=== PATIENT | male | born 2000 | race Caucasian/White ===

== ENCOUNTER 2024-05-11 22:26 | Emergency (ER) | payer SELFPAY ==
[2024-05-11 22:28] VITALS: PULSE 78
== END 2024-05-11 23:48 | disposition left against medical advice (07) ==
LOC: ER 22:26
DX: M25.532 Pain in left wrist (principal); Z53.21 Procedure and treatment not carried out due to patient leaving prior to being seen by health care provider

== ENCOUNTER 2024-07-13 07:50 | Emergency (ER) | payer SELFPAY ==
[~2024-07-13] VITALS: Ht 170.2 cm; Wt 66.0 kg
[2024-07-13 07:52] VITALS: BP 119/81; PULSE 62; RESP 16; TEMP 99; O2SAT 100
[2024-07-13 08:06] VITALS: O2SAT 99
== END 2024-07-13 08:25 | disposition left against medical advice (07) ==
LOC: ER 07:50
DX: M25.522 Pain in left elbow (principal); F17.210 Nicotine dependence, cigarettes, uncomplicated; Z88.6 Allergy status to analgesic agent; V00.131A Fall from skateboard, initial encounter; Y93.51 Activity, roller skating (inline) and skateboarding; Y92.89 Other specified places as the place of occurrence of the external cause; Y99.8 Other external cause status
CPT/HCPCS: 99283

== ENCOUNTER 2024-07-13 08:44 | Emergency (ER) | payer OTHER, MEDICAID ==
[~2024-07-13] VITALS: Ht 175.3 cm; Wt 75.0 kg
[2024-07-13] MEDS: KETOROLAC 15MG/ML VIAL IV ONE (10:46)
[2024-07-13 11:11] VITALS: O2SAT 99
[2024-07-13] MEDS: KETAMINE HCL 50 MG/ML 10ML IV ONE (11:24)
[2024-07-13] MEDS: SODIUM CHLORIDE 0.9% 1,000 ML IV ONE (11:38)
[2024-07-13] MEDS: KETAMINE HCL 50 MG/ML 10ML IV NR (13:56)
[2024-07-13 15:40] VITALS: BP 123/66; PULSE 68; RESP 22; TEMP 36.72516; O2SAT 97
== END 2024-07-13 15:46 | disposition home or self-care (01) ==
LOC: ER 08:44
DX: S52.122A Displaced fracture of head of left radius, initial encounter for closed fracture (principal); S53.105A Unspecified dislocation of left ulnohumeral joint, initial encounter; Z88.6 Allergy status to analgesic agent; V00.131A Fall from skateboard, initial encounter; Y93.51 Activity, roller skating (inline) and skateboarding; Y92.89 Other specified places as the place of occurrence of the external cause; Y99.8 Other external cause status
CPT/HCPCS: 73060; 73070; 73080; 73090; 24600; 96374; 99152; 99291; J3490; J1885; J7030; Z7610 ×4

== ENCOUNTER 2024-07-17 09:28 | Emergency (ER) | payer OTHER, MEDICAID ==
[~2024-07-17] VITALS: Ht 167.6 cm; Wt 59.0 kg
[2024-07-17 09:37] VITALS: O2SAT 100
[2024-07-17] MEDS: BACITRACIN ZINC OINT UDPKT TOP ONE (10:15)
[2024-07-17 10:25] VITALS: BP 133/78; PULSE 76; RESP 18; TEMP 37.05852; O2SAT 98
== END 2024-07-17 10:27 | disposition home or self-care (01) ==
LOC: ER 09:28
DX: S50.322A Blister (nonthermal) of left elbow, initial encounter (principal); Z88.6 Allergy status to analgesic agent; X58.XXXA Exposure to other specified factors, initial encounter; Y93.89 Activity, other specified; Y92.89 Other specified places as the place of occurrence of the external cause; Y99.8 Other external cause status
CPT/HCPCS: 99282